=== PATIENT | male | born 1980 | race Caucasian/White ===

== ENCOUNTER 2023-10-21 14:49 | Outpatient (CLI) | payer OTHER, SELFPAY | END 2023-10-21 14:50 | disposition home or self-care (01) | PROVIDERS: PCP Family Medicine; Visit Provider Family Medicine | DX: Z00.00 Encounter for general adult medical examination without abnormal findings (principal); E66.9 Obesity, unspecified; M10.9 Gout, unspecified; Z13.6 Encounter for screening for cardiovascular disorders | CPT/HCPCS: 80053; 80061; 84153; 84550 ==

== ENCOUNTER 2024-11-19 10:08 | Outpatient (CLI) | payer OTHER, SELFPAY | END 2024-11-19 10:09 | disposition home or self-care (01) | PROVIDERS: PCP Family Medicine; Visit Provider Family Medicine | DX: R79.89 Other specified abnormal findings of blood chemistry (principal); E66.9 Obesity, unspecified; E78.1 Pure hyperglyceridemia; M10.9 Gout, unspecified | CPT/HCPCS: 80061; 80076; 84550 ==